=== PATIENT | female | born 1995 | race American Indian/Alaskan Native ===

== ENCOUNTER 2018-08-24 11:07 | Outpatient (CLI) | payer MEDICAID, OTHER ==
[2018-08-24] MEDS ORDERED: LACTATED RINGERS 500 ML IV ONE (11:35)
[2018-08-24 11:54] VITALS: BP 114/59
[2018-08-24] MEDS ORDERED: TYLENOL PO ONE (12:19)
[2018-08-24 12:34] LABS: Bacteria,Urine 1+ /HPF (Negative); Bilirubin,Urine NEG (Negative); Blood,Urine NEG (Negative); Color,Urine Yellow (Yellow); Hyaline Casts,Urine 3 /LPF; Mucus,Urine 2+ /HPF; Urobilinogen,Urine < 2.0 mg/dL (<2.0)
[2018-08-24 12:37] LABS: Amphetamine Screen,Urine PRESUMPTIVE NEGATIVE; Benzodiazepines Screen,Urine PRESUMPTIVE NEGATIVE; Cocaine Screen,Urine PRESUMPTIVE NEGATIVE; Methadone Screen,Urine PRESUMPTIVE NEGATIVE; Opiate Screen,Urine PRESUMPTIVE NEGATIVE
[2018-08-24 12:53] LABS: Cannabinoid Screen,Urine PRESUMPTIVE POSITIVE
[2018-08-24] MEDS ORDERED: XYLOCAINE 1% MPF 5 mL INFILTRATI ONE (14:37)
[2018-08-24] MEDS ORDERED: ROCEPHIN IM ONE (14:37)
--- NOTE | 2018-08-24 16:59 | Ultrasound Report ---
FINAL REPORT EXAM: US OB > = 14 WEEKS FETUS HISTORY: well being r/o abrution COMPARISON: . TECHNIQUE: Obstetric ultrasound was performed. FINDINGS: The cervix measures 5.8 centimeters and is closed. There is a posterior left lateral grade 0 placenta, which is low lying and covers the cervical os. There is no evidence of abruption. There is a single live intrauterine in cephalic presentation. heart rate is 154 beats per minute. Limited anatomical survey demonstrates normal intracranial contents, stomach, kidneys, bladder, diaphragm, four-chamber heart, three-vessel cord and cord insertion. The spine is normal in appearance. Biparietal diameter corresponds to a gestational age of 21 weeks, 3 days. Head circumference corresponds to a gestational age of 22 weeks, 0 days. Abdominal circumference corresponds to a gestational age of 22 weeks, 2 days. Femoral length corresponds to a gestational age of 22 weeks, 5 days. Estimated weight is 500 grams. Gestational age by ultrasound is 22 weeks, 1 day, with estimated date of delivery of 12/27/2018. IMPRESSION: 1. No evidence for placental abruption. 2. Single live intrauterine with gestational age by ultrasound of 22 weeks, 1 day, with estimated date of delivery of 12/27/2018. 3. Placenta is somewhat low lying, which can be normal for this gestational age. Attention on follow-up is recommended.
--- NOTE | 2018-08-24 18:06 | Ultrasound Report ---
FINAL REPORT EXAM: US OB TRANSVAGINAL HISTORY: PT FELL; FOR CERVIX MEASUREMENT TECHNIQUE: Limited ultrasound evaluation of the pelvis using TRANSVAGINAL technique to evaluate the cervix PRIORS: Ob ultrasound 08/24/2018 FINDINGS: Cervix closed with length of 5.8 cm. Please see same day Ob ultrasound for other findings. IMPRESSION: Cervix closed with length of 5.8 cm.
== END 2018-08-24 17:16 | disposition home or self-care (01) ==
LOC: TRG 11:07 → LD 11:08 → TRG 17:16
PROVIDERS: ATTEND Obstetrics & Gynecology
DX: O47.02 False labor before 37 completed weeks of gestation, second trimester (principal); Z3A.22 22 weeks gestation of pregnancy
CPT/HCPCS: 76805; 76817; 80307; 81001; J0696